=== PATIENT | female | born 1970 | race Caucasian/White ===

== ENCOUNTER 2022-08-06 22:40 | Emergency (ER) | payer SELFPAY ==
[~2022-08-06] VITALS: Ht 160 cm; Wt 68.0 kg
[2022-08-06 22:47] VITALS: BP 142/74
--- NOTE | 2022-08-06 22:51 | NUR ---
to lobby a/w bed via w/c
--- NOTE | 2022-08-06 23:19 | NUR ---
URINE COLLECTED AND SENT TO LAB
[2022-08-07 00:14] LABS: HEMATOCRIT 34.7 % (36-48); HEMOGLOBIN 11.6 g/dL (12.0-16.0); MEAN CORPUSCULAR HEMOGLOBIN 30 pg (27-31); MEAN CORPUSCULAR HGB CONC 34 g/dL (33-37); MEAN CORPUSCULAR VOLUME 89.2 fL (80-94); PLATELET COUNT (AUTO) 405 K/uL (140-450); RED BLOOD CELL COUNT(AUTO) 3.89 MIL/uL (4.20-5.40); RED CELL DISTRIBUTION WIDTH 13.8 % (11.6-13.7); WHITE BLOOD COUNT (AUTO) 10.4 K/uL (4.8-10.8)
[2022-08-07 00:36] LABS: EOSINOPHILS % (MANUAL) 1 % (0-4); LYMPHOCYTES % (MANUAL) 15 % (20-46); MONOCYTES % (MANUAL) 6 % (5-12)
[2022-08-07 00:37] LABS: ALBUMIN 3.6 g/dL (3.4-5.0); ANION GAP 12.5 (8-16); CARBON DIOXIDE 25.9 mmol/L (21-32); CREATININE 0.8 mg/dL (0.6-1.3); POTASSIUM 3.4 mmol/L (3.5-5.1); TOTAL BILIRUBIN 0.3 mg/dL (0.0-1.0)
[2022-08-07 00:43] LABS: APPEARANCE,URINE CLEAR (CLEAR); BILIRUBIN,URINE NEGATIVE (NEGATIVE); BLOOD, URINE 2+ (NEGATIVE); COLOR,URINE YELLOW (YELLOW); LEUKOCYTE ESTERASE ,URINE TRACE (NEGATIVE); NITRITE, URINE NEGATIVE (NEGATIVE); PH,URINE 6.5 (5.0-9.0); UGLUCOSE NEGATIVE (NEGATIVE)
[2022-08-07 00:54] LABS: RBC,URINE 11-20 (MOD) /HPF (0-5); WBC,URINE 20-60 /HPF (0-5)
--- NOTE | 2022-08-07 02:32 | NUR ---
pt w/c assisted to bed #9
[2022-08-07] MEDS ORDERED: MORPHINE SULFATE 4 MG/ML SYR IVP ONE (02:45)
[2022-08-07] MEDS ORDERED: NACL 0.9% 1,000 ML IV ONE (02:45)
--- NOTE | 2022-08-07 02:45 | NUR ---
Patient being evaluated by physician at bedside.
[2022-08-07] MEDS ORDERED: MORPHINE SULFATE 4 MG/ML SYR ONE (02:48)
[2022-08-07] MEDS ORDERED: CIPR500T4 PO (04:42)
[2022-08-07] MEDS ORDERED: ACET-2619 PO (04:42)
[2022-08-07] MEDS ORDERED: SODIUM CHLORIDE FLUSH 10 ML SYR IVF SCH (05:00)
[2022-08-07 05:05] VITALS: BP 142/74
--- NOTE | 2022-08-07 05:05 | NUR ---
Patient discharged with v/s stable. Written and verbal after care instructions given and explained. Patient verbalized understanding. Ambulatory with steady gait. All questions addressed prior to discharge. Advised to follow up with PMD.
--- NOTE | 2022-08-09 11:56 | NUR ---
LATE ENTRY. RECEIVED POSITIVE URINE CULTURE. FORM GIVEN TO DR ALMAZAN. TREATMENT APPROPRIATEE. FORM PLACED IN BINDER
== END 2022-08-07 05:05 | disposition home or self-care (01) ==
LOC: MED 22:40
DX: R10.84 Generalized abdominal pain (principal)
CPT/HCPCS: 36415; 74177; 80053; 81001; 83690; 85025; 87086; 96361; 96374; 99285; J2270; J7030; Q9967